=== PATIENT | male | born 1935 | race Caucasian/White ===

== ENCOUNTER → 2018-01-07 | Outpatient (CLI) | payer MEDICARE, OTHER ==
[~2018-01-07] MED LIST: ASCO500 PO; ASPI81CH; BISO5; BISO5 PO; CRUTCH3 USE; DIPH50 PO; DOCU100 PO; Ducodyl5 MG PO; HYDACE5 PO; HYDACE5325 PO; IBUP800 PO; MELA3; METRIBP; NIAC500 PO; NITR.4SL SL; NITR.6SL SL; OMEP20ER PO; OMEP40CA12; PRAV20; PRAV20 PO; PROP60; TEMA30; VENL75ER
== END ==
LOC: LAB EV 11:40 → LAB SHORT 11:40
DX: R30.0 Dysuria (principal)
CPT/HCPCS: 87086

== ENCOUNTER 2019-12-19 08:03 | Emergency (ER) | payer MEDICARE, OTHER ==
[~2019-12-19] VITALS: Ht 170.2 cm; Wt 90.7 kg
[2019-12-19] MEDS ORDERED: Bisoprolol Fumar5 MG PO (09:18)
== END 2019-12-19 11:07 | disposition home or self-care (01) ==
LOC: ER 08:03
DX: I83.891 Varicose veins of right lower extremity with other complications (principal); I10 Essential (primary) hypertension; Z79.82 Long term (current) use of aspirin; Z79.899 Other long term (current) drug therapy
CPT/HCPCS: 99282

== ENCOUNTER 2020-03-29 08:35 | Day surgery (SDC) | payer MEDICARE, OTHER ==
[~2020-03-29 08:35] MED LIST changes: +Bisoprolol Fumar5 MG PO
--- NOTE | 2020-03-29 10:11 | NUR ---
PT AWAKE AND VERBALIZING WELL.
--- NOTE | 2020-03-29 10:54 | NUR ---
PT VERBALIZED UNDERSTANDING OF WRITTEN AND VERBAL D/C INST. IV REMOVED. PT TAKEN OUT OF THE HRT CENTER VIA W/C.
== END 2020-03-29 14:00 | disposition home or self-care (01) ==
LOC: MHTC 08:35
DX: Z48.812 Encounter for surgical aftercare following surgery on the circulatory system (principal); I70.0 Atherosclerosis of aorta; E78.5 Hyperlipidemia, unspecified; I10 Essential (primary) hypertension; Z79.899 Other long term (current) drug therapy; Z95.2 Presence of prosthetic heart valve; Z79.82 Long term (current) use of aspirin
CPT/HCPCS: 93312; 93325; J2704; J7030

== ENCOUNTER 2023-04-22 13:48 | Emergency (ER) | payer MEDICARE, OTHER ==
[~2023-04-22] VITALS: Ht 170.2 cm; Wt 72.6 kg
[~2023-04-22 13:48] MED LIST changes: +TRAM50 PO
[2023-04-22 14:13] VITALS: BP 143/86
[2023-04-22 14:40] LABS: BASOPHILS ABSOLUTE AUTO 0.02 K/mm3 (0.00-0.23); BASOPHILS PERCENT AUTO 0 % (0-2); EOSINOPHILS ABSOLUTE AUTO 0.04 K/mm3 (0.00-0.68); EOSINOPHILS PERCENT AUTO 1 % (0-6); Hematocrit 36.4 % (37.0-53.0); IMMATURE GRAN ABSOLUTE AUTO 0.04 K/mm3 (0.00-0.10); IMMATURE GRAN PERCENT AUTO 1 % (0-1); LYMPHOCYTES ABSOLUTE AUTO 0.36 K/mm3 (0.84-5.20); LYMPHOCYTES PERCENT AUTO 4 % (21-46); MONOCYTES ABSOLUTE AUTO 0.69 K/mm3 (0.16-1.47); MONOCYTES PERCENT AUTO 8 % (4-13); Mean Corpuscular HGB 30.4 pg (26.0-34.0); Mean Corpuscular Volume 92 fL (80-100); Mean Platelet Volume 10.8 fL (9.1-12.4); NEUTROPHILS ABSOLUTE AUTO 7.12 K/mm3 (1.96-9.15); NEUTROPHILS PERCENT AUTO 86 % (41-73); Platelet Count 192 K/mm3 (150-400); RDW Coefficient Variation 14.1 % (11.7-14.2); RDW Standard Deviation 47.8 fL (35.1-46.3); Red Blood Cell Count 3.95 M/mm3 (4.30-5.90); White Blood Cell Count 8.27 K/mm3 (4.00-11.30)
[2023-04-22 15:06] LABS: Influenza A, PCR NEGATIVE (NEGATIVE); Influenza B, PCR NEGATIVE (NEGATIVE); Resp Syncytial Virus, PCR NEGATIVE (NEGATIVE); SARS-Cov-2 (COVID-19) PCR, MMC NEGATIVE (NEGATIVE)
[2023-04-22 15:11] LABS: Albumin, Blood 3.3 g/dL (3.4-5.0); Albumin/Globulin Ratio 1.1 (0.8-1.8); Bilirubin, Total 0.3 mg/dL (0.1-1.0); Calcium, Blood 8.9 mg/dL (8.5-10.1); Creatinine, Blood 0.67 mg/dL (0.60-1.20); Globulin, Blood 3.1 g/dL (2.2-4.0); Potassium, Blood 3.9 mmol/L (3.5-5.5); Total Protein, Blood 6.4 g/dL (6.4-8.2)
[2023-04-22] MEDS ORDERED: LOW DOSE ASPIRI81 MG PO (15:23)
== END 2023-04-22 16:05 | disposition home or self-care (01) ==
LOC: ER 13:48
PROVIDERS: Student in an Organized Health Care Education/Training Program
DX: J02.9 Acute pharyngitis, unspecified (principal); I10 Essential (primary) hypertension; Z20.822 Contact with and (suspected) exposure to COVID-19; Z79.82 Long term (current) use of aspirin
CPT/HCPCS: 0241U; 80053; 85025; 87081; 87430; 99283; A9270

== ENCOUNTER → 2023-10-01 | Outpatient (CLI) | payer MEDICARE, OTHER ==
[~2023-10-01] MED LIST changes: +LOW DOSE ASPIRI81 MG PO
[2023-10-01 18:24] LABS: BASOPHILS ABSOLUTE AUTO 0.04 K/mm3 (0.00-0.23); BASOPHILS PERCENT AUTO 1 % (0-2); EOSINOPHILS ABSOLUTE AUTO 0.09 K/mm3 (0.00-0.68); EOSINOPHILS PERCENT AUTO 2 % (0-6); Hematocrit 35.3 % (37.0-53.0); Hemoglobin 11.5 g/dL (13.5-17.5); IMMATURE GRAN ABSOLUTE AUTO 0.01 K/mm3 (0.00-0.10); IMMATURE GRAN PERCENT AUTO 0 % (0-1); LYMPHOCYTES ABSOLUTE AUTO 0.62 K/mm3 (0.84-5.20); LYMPHOCYTES PERCENT AUTO 13 % (21-46); MONOCYTES ABSOLUTE AUTO 0.37 K/mm3 (0.16-1.47); MONOCYTES PERCENT AUTO 8 % (4-13); Mean Corpuscular HGB 30.2 pg (26.0-34.0); Mean Corpuscular HGB Conc 32.6 g/dL (31.5-36.5); Mean Corpuscular Volume 93 fL (80-100); Mean Platelet Volume 11.4 fL (9.1-12.4); NEUTROPHILS ABSOLUTE AUTO 3.48 K/mm3 (1.96-9.15); NEUTROPHILS PERCENT AUTO 76 % (41-73); Platelet Count 200 K/mm3 (150-400); RDW Coefficient Variation 15.3 % (11.7-14.2); RDW Standard Deviation 52.1 fL (35.1-46.3); Red Blood Cell Count 3.81 M/mm3 (4.30-5.90); White Blood Cell Count 4.61 K/mm3 (4.00-11.30)
[2023-10-01 20:07] LABS: Albumin, Blood 3.6 g/dL (3.4-5.0); Albumin/Globulin Ratio 1.2 (0.8-1.8); Bilirubin, Total 0.3 mg/dL (0.1-1.0); Calcium, Blood 9.2 mg/dL (8.5-10.1); Creatinine, Blood 0.58 mg/dL (0.60-1.20); Globulin, Blood 2.9 g/dL (2.2-4.0); Potassium, Blood 3.9 mmol/L (3.5-5.5); Thyroid Stimulating Hormone 1.02 uIU/mL (0.360-4.800); Total Protein, Blood 6.5 g/dL (6.4-8.2)
== END | disposition home or self-care (01) ==
LOC: LAB SHORT 17:16
PROVIDERS: Family Medicine
DX: I10 Essential (primary) hypertension (principal)
CPT/HCPCS: 80053; 83880; 84443; 85025

== ENCOUNTER 2024-01-31 12:24 | Emergency (ER) | payer MEDICARE, OTHER ==
[~2024-01-31] VITALS: Ht 170.2 cm; Wt 74.8 kg
[2024-01-31 13:21] LABS: BASOPHILS ABSOLUTE AUTO 0.04 K/mm3 (0.00-0.23); BASOPHILS PERCENT AUTO 1 % (0-2); EOSINOPHILS ABSOLUTE AUTO 0.09 K/mm3 (0.00-0.68); EOSINOPHILS PERCENT AUTO 1 % (0-6); Hemoglobin 12.1 g/dL (13.5-17.5); IMMATURE GRAN ABSOLUTE AUTO 0.02 K/mm3 (0.00-0.10); IMMATURE GRAN PERCENT AUTO 0 % (0-1); LYMPHOCYTES ABSOLUTE AUTO 0.66 K/mm3 (0.84-5.20); LYMPHOCYTES PERCENT AUTO 9 % (21-46); MONOCYTES ABSOLUTE AUTO 0.48 K/mm3 (0.16-1.47); MONOCYTES PERCENT AUTO 7 % (4-13); Mean Corpuscular HGB 31.2 pg (26.0-34.0); Mean Corpuscular HGB Conc 32.7 g/dL (31.5-36.5); Mean Corpuscular Volume 95 fL (80-100); Mean Platelet Volume 11.5 fL (9.1-12.4); NEUTROPHILS ABSOLUTE AUTO 5.93 K/mm3 (1.96-9.15); NEUTROPHILS PERCENT AUTO 82 % (41-73); Platelet Count 197 K/mm3 (150-400); RDW Coefficient Variation 14.7 % (11.7-14.2); RDW Standard Deviation 51.3 fL (35.1-46.3); Red Blood Cell Count 3.88 M/mm3 (4.30-5.90); White Blood Cell Count 7.22 K/mm3 (4.00-11.30)
[2024-01-31 13:34] LABS: Albumin, Blood 3.8 g/dL (3.4-5.0); Albumin/Globulin Ratio 1.4 (0.8-1.8); Bilirubin, Total 0.4 mg/dL (0.1-1.0); Bun/Creatinine Ratio 27.4 (12.0-20.0); Calcium, Blood 8.6 mg/dL (8.5-10.1); Creatinine, Blood 0.55 mg/dL (0.60-1.20); Globulin, Blood 2.8 g/dL (2.2-4.0); Potassium, Blood 3.9 mmol/L (3.5-5.5); Total Protein, Blood 6.6 g/dL (6.4-8.2)
[2024-01-31] MEDS ORDERED: NS 1,000 ML IV SCH (13:35)
[2024-01-31 13:36] LABS: Source, Urine Clean Catch
[2024-01-31 13:40] LABS: Appearance, Urine Clear (Clear); Bilirubin, Urine Neg (Neg); Blood, Urine Neg (Neg); Glucose Qualitative, Urine Neg (Neg); Ketones, Urine Neg (Neg); Leukocyte Esterase, Urine Neg (Neg); Nitrite, Urine Neg (Neg); Protein, Urine Neg (Neg); Specific Gravity, Urine 1.005 (1.003-1.022); Urobilinogen, Urine NORM (Normal)
[2024-01-31 13:41] LABS: Color, Urine Pale Yellow (P-Yellow)
[2024-01-31 15:32] VITALS: BP 138/85
== END 2024-01-31 15:33 | disposition home or self-care (01) ==
LOC: ER 12:24
PROVIDERS: Emergency Medicine
DX: R41.0 Disorientation, unspecified (principal); I10 Essential (primary) hypertension; Z79.82 Long term (current) use of aspirin; Z79.899 Other long term (current) drug therapy
CPT/HCPCS: 70450; 80053; 81003; 85025; 93005; 93010; 96360; 99285-25; J7030

== ENCOUNTER 2024-06-14 13:08 | Inpatient (IN) | payer MEDICARE, OTHER ==
[~2024-06-14] VITALS: Ht 170.2 cm; Wt 77.3 kg
[2024-06-14 13:48] LABS: BASOPHILS ABSOLUTE AUTO 0.03 K/mm3 (0.00-0.23); BASOPHILS PERCENT AUTO 1 % (0-2); EOSINOPHILS ABSOLUTE AUTO 0.01 K/mm3 (0.00-0.68); EOSINOPHILS PERCENT AUTO 0 % (0-6); Hematocrit 36.3 % (37.0-53.0); IMMATURE GRAN ABSOLUTE AUTO 0.04 K/mm3 (0.00-0.10); IMMATURE GRAN PERCENT AUTO 1 % (0-1); LYMPHOCYTES PERCENT AUTO 4 % (21-46); MONOCYTES ABSOLUTE AUTO 0.27 K/mm3 (0.16-1.47); MONOCYTES PERCENT AUTO 5 % (4-13); Mean Corpuscular HGB 30.9 pg (26.0-34.0); Mean Corpuscular HGB Conc 33.1 g/dL (31.5-36.5); Mean Corpuscular Volume 94 fL (80-100); Mean Platelet Volume 11.5 fL (9.1-12.4); NEUTROPHILS ABSOLUTE AUTO 4.77 K/mm3 (1.96-9.15); NEUTROPHILS PERCENT AUTO 90 % (41-73); Platelet Count 151 K/mm3 (150-400); RDW Coefficient Variation 14.9 % (11.7-14.2); RDW Standard Deviation 50.7 fL (35.1-46.3); Red Blood Cell Count 3.88 M/mm3 (4.30-5.90); White Blood Cell Count 5.32 K/mm3 (4.00-11.30)
[2024-06-14 14:17] LABS: Albumin, Blood 3.4 g/dL (3.4-5.0); Albumin/Globulin Ratio 1.2 (0.8-1.8); Bilirubin, Total 0.5 mg/dL (0.1-1.0); Bun/Creatinine Ratio 25.5 (12.0-20.0); Calcium, Blood 8.6 mg/dL (8.5-10.1); Creatinine, Blood 0.63 mg/dL (0.60-1.20); Globulin, Blood 2.9 g/dL (2.2-4.0); Potassium, Blood 3.8 mmol/L (3.5-5.5); Total Protein, Blood 6.3 g/dL (6.4-8.2)
[2024-06-14 15:01] LABS: C-REACTIVE PROTEIN, EXT RANGE 5.74 mg/dL (0.000-0.300); Magnesium, Blood 2.1 mg/dL (1.6-2.4); Thyroid Stimulating Hormone 0.431 uIU/mL (0.360-4.800)
[2024-06-14] MEDS ORDERED: NS 1,000 ML IV SCH ×2 (15:50→17:00)
[2024-06-14] MEDS ORDERED: Acetaminophen 325 MG TABLET PO PRN (16:45)
[2024-06-14] MEDS ORDERED: FLU VACC TS2024-25(6MOS UP)/PF 45 MCG/0.5 ML SYRINGE IM PRN (16:45)
[2024-06-14] MEDS ORDERED: TraMADol HCl 50 MG Tab PO PRN (16:45)
[2024-06-14 20:04] VITALS: BP 130/66
[2024-06-15 04:04] VITALS: BP 121/77
[2024-06-15 06:07] LABS: Hematocrit 30.9 % (37.0-53.0); Hemoglobin 10.2 g/dL (13.5-17.5); Mean Corpuscular HGB 30.5 pg (26.0-34.0); Mean Corpuscular Volume 93 fL (80-100); Platelet Count 123 K/mm3 (150-400); RDW Coefficient Variation 15.1 % (11.7-14.2); RDW Standard Deviation 51.1 fL (35.1-46.3); Red Blood Cell Count 3.34 M/mm3 (4.30-5.90); White Blood Cell Count 4.21 K/mm3 (4.00-11.30)
[2024-06-15 06:27] LABS: Albumin, Blood 2.9 g/dL (3.4-5.0); Albumin/Globulin Ratio 1.2 (0.8-1.8); Bilirubin, Total 0.3 mg/dL (0.1-1.0); Bun/Creatinine Ratio 26.6 (12.0-20.0); Calcium, Blood 8.3 mg/dL (8.5-10.1); Creatinine, Blood 0.64 mg/dL (0.60-1.20); Globulin, Blood 2.4 g/dL (2.2-4.0); Potassium, Blood 3.4 mmol/L (3.5-5.5); Total Protein, Blood 5.3 g/dL (6.4-8.2)
--- NOTE | 2024-06-15 06:29 | NUR ---
SHIFT SUMMARY PT ARRIVED ON FLOOR APPROX 1999 FROM ER. ADMITTED FOR RHABDOMYOLYSIS. HE WAS FOUND DOWN IN HIS HOME WHERE HE LIVES ALONE. HE HAS GIVEN VERBAL CONSENT FOR MARJAN TORRES (FRIEND AND CAREGIVER) TO BE MADE AWARE OF ANY INFORMATION REGARDING HIS HEALTHCARE DURING THIS ADMISSION. HER PHONE NUMBER IS IN THE FRONT SLEEVE OF HIS PATIENT CHART. HE HAS A PLEASANT ATTITUDE REGARDING HIS CURRENT ADMISSION, AND HAS BEEN COOPERATIVE WITH CARE PROVIDED TO HIM. HE DOES HAVE TROUBLE REMEMBERING, AND IS UNABLE TO COMPLETE HIS MED REC FOR HIS ADMISSION. MARJAN WOULD LIKE TO BE PRESENT WHEN DOCTOR ROUNDS TO HELP HIM UNDERSTAND AND RETAIN INFORMATION GIVEN TO HIM. HE IS SLEEPING SOUNDLY, AND HIS CALL LIGHT IS WITHIN REACH. PT WOKE TO USE URINAL. FINISHED ADMIT ASSESSMENT DURING THIS TIME. PT PLEASANT AND COOPERATIVE. PT ABLE TO USE URINAL. VOIDED 300ML DARK OMERO URINE.
[2024-06-15 06:30] LABS: BAND PERCENT MAN 17 % (0-8); BASOPHILS PERCENT MAN 0 % (0-2); EOSINOPHILS PERCENT MAN 0 % (0-6); LYMPHOCYTES ABSOLUTE MAN 0.25 K/mm3 (0.84-5.20); LYMPHOCYTES PERCENT MAN 6 % (21-46); MONOCYTES ABSOLUTE MAN 0.16 K/mm3 (0.16-1.47); MONOCYTES PERCENT MAN 4 % (4-13); NEUTROPHILS ABSOLUTE MAN 3.78 K/mm3 (1.96-9.15); SEG NEUTROPHILS PERCENT MAN 73 % (41-73); TOTAL CELLS COUNTED 100
[2024-06-15] MEDS ORDERED: Potassium Chloride 20 MEQ/15 ML UDC PO ONE (08:00)
[2024-06-15 08:02] VITALS: BP 122/78
[2024-06-15] MEDS ORDERED: Enoxaparin 40 MG/0.4 ML SYR SC SCH (09:00)
[2024-06-15 12:32] LABS: Bun/Creatinine Ratio 21.5 (12.0-20.0); Calcium, Blood 7.9 mg/dL (8.5-10.1); Creatinine, Blood 0.61 mg/dL (0.60-1.20); Potassium, Blood 3.7 mmol/L (3.5-5.5)
[2024-06-15] MEDS ORDERED: PredniSONE 5 MG Tab PO SCH (13:00)
[2024-06-15 15:21] LABS: Adenovirus Not Detected (NOT DETECT); Bordetella pertussis Not Detected (NOT DETECT); Chlamydophila pneumoniae Not Detected (NOT DETECT); Coronavirus 229E Not Detected (NOT DETECT); Coronavirus HKU1 Not Detected (NOT DETECT); Coronavirus NL63 Not Detected (NOT DETECT); Coronavirus OC43 Not Detected (NOT DETECT); Human Metapneumovirus Not Detected (NOT DETECT); Human Rhinovirus/Enterovirus Not Detected (NOT DETECT); Influenza A/2009-H1 Not Detected (NOT DETECT); Influenza A/H1 Not Detected (NOT DETECT); Influenza A/H3 Not Detected (NOT DETECT); Influenza B Not Detected (NOT DETECT); Mycoplasma pneumoniae Not Detected (NOT DETECT); Parainfluenza Virus 1 Not Detected (NOT DETECT); Parainfluenza Virus 2 Not Detected (NOT DETECT); Parainfluenza Virus 3 Not Detected (NOT DETECT); Parainfluenza Virus 4 Not Detected (NOT DETECT); Respiratory Syncytial Virus Not Detected (NOT DETECT); SARS-Cov-2 (COVID-19), BioFire Not Detected (NOT DETECT)
[2024-06-15] MEDS ORDERED: Lactated Ringer's 1,000 ML IV SCH (15:25)
--- NOTE | 2024-06-15 15:43 | NUR ---
SHIFT SUMMARY- PT HAS HAD NO ACUTE CHANGE T/O THE SHIFT, HIS LUNG SOUNDS ARE WHEEZY T/O. HE IS CURRENTLY IN BED, CALL LIGHT IN REACH NO S&S OF DISTRESS NOTED. MULTIPLE LABS COMPLETED TODAY, CALLED DR SANTIAGO AND ASKED THAT HE CALL MARJAN TO UPDATE HER ABOUT THE PT TESTS AND THE PLAN FOR HIS TREATMENT GOING FORWARD. DR SANTIAGO WILL CALL HER.
[2024-06-15 17:39] VITALS: BP 122/79
--- NOTE | 2024-06-15 18:36 | NUR ---
SHIFT SUMMARY ADDENEDUM- PT NEEDED IVF STARTED IV WAS LEAKING AND NOT PATENT, NOTED PT RESP WERE ELEVATED AND BREATH SOUNDS REMAIN WHEEZY. WHILE STARTING A NEW IV NOTED THE PT FEELS HOT TO THE TOUCH. [employer] P[employer] CAME IN TO PERFORM VITALS, TEMPORAL TEMP WAS 98.4 ORAL THERMOMETER WAS USED. TEMP 100.6. PLACED ICE PACK ON THE BACK OF THE PT NECK, PLACED NEW IV AND STARTED THE LR AT 200ML/HR, PLACED PT ON TELE, AND ADMINISTERED TYLENOL PRN FOR FEVER AND BODY ACHES. CALLED DR SANTIAGO THE PT RESP RATE WAS 32, SATS WERE 94% ON ROOM AIR. NEW ORDER FOR BD PROTOCOL. CALLED NIGHT JAYLENE BARCLAY HE IS AWARE AND WILL COME SEE THE PT WHEN HE GETS TO MED FLOOR. AT THIS TIME THE PT APPEARS TO BE IN NO DISTRESS, HE STATES HE FEELS SO MUCH WEAKER THIS EVENING, METAL LOADER SEEM MORE WEAK. PT STATES HE FEELS BETTER NOW THAN HE DID PRIOR TO THE ICE AND TYLENOL.
[2024-06-15 19:22] VITALS: BP 105/62
[2024-06-15] MEDS ORDERED: CefTRIAXone Sodium 1,000 MG in NS 100 ML IV SCH (21:00)
[2024-06-15] MEDS ORDERED: NS 250 ML IV PRN (21:15)
[2024-06-15 21:44] LABS: Source, Urine Clean Catch
[2024-06-15 21:48] LABS: Bilirubin, Urine Neg (Neg); Blood, Urine 2+ (Neg); Glucose Qualitative, Urine Neg (Neg); Ketones, Urine Neg (Neg); Leukocyte Esterase, Urine Neg (Neg); Nitrite, Urine Neg (Neg); Protein, Urine Neg (Neg); Urobilinogen, Urine NORM (Normal)
[2024-06-15 21:51] LABS: Appearance, Urine Clear (Clear); Color, Urine Yellow (P-Yellow)
[2024-06-15 21:54] LABS: Bacteria Not Seen /hpf; Red Blood Cells, Urine 0-2 /hpf (0-2); Squamous Epithelial Cells Not Seen /hpf (Few); White Blood Cells, Urine Not Seen /hpf (0-5)
[2024-06-16 02:10] VITALS: BP 132/73
[2024-06-16 05:49] LABS: Hematocrit 29.7 % (37.0-53.0); Hemoglobin 9.8 g/dL (13.5-17.5); Mean Corpuscular HGB 30.9 pg (26.0-34.0); Mean Corpuscular Volume 94 fL (80-100); Mean Platelet Volume 11.9 fL (9.1-12.4); NRBC ABSOLUTE 0.02 K/mm3 (0.00-0.02); NRBC Auto 0.6 /100 WBC (0.0-0.2); Platelet Count 105 K/mm3 (150-400); RDW Coefficient Variation 14.9 % (11.7-14.2); RDW Standard Deviation 51.6 fL (35.1-46.3); Red Blood Cell Count 3.17 M/mm3 (4.30-5.90); White Blood Cell Count 3.57 K/mm3 (4.00-11.30)
--- NOTE | 2024-06-16 06:26 | NUR ---
SHIFT SUMMARY ART IS A&OX4, FORGETFUL AT TIMES. VSS ON RA. 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 DENIES PAIN. TOLERATING A CLEAR LIQUID DIET. PT IS USING URINAL INDEPENDENTLY IN BED. VOIDING LARGE AMOUNTS OF VERY LIGHT, CLEAR URINE IN URINAL. HAS BEEN INCONTINENT, PULL-UP IN PLACE AND CHANGED NEEDED. NO BM THIS SHIFT. PT HAS ABRASIONS TO BUE. BED IN LOWEST POSITION, CALL LIGHT WITHIN REACH. BED ALARM SET FOR PT'S SAFETY. REMINDED PT ON USING HIS CALL LIGHT.
[2024-06-16 06:28] LABS: BAND PERCENT MAN 27 % (0-8); BASOPHILS PERCENT MAN 0 % (0-2); EOSINOPHILS PERCENT MAN 0 % (0-6); LYMPHOCYTES ABSOLUTE MAN 0.35 K/mm3 (0.84-5.20); LYMPHOCYTES PERCENT MAN 10 % (21-46); MONOCYTES ABSOLUTE MAN 0.42 K/mm3 (0.16-1.47); MONOCYTES PERCENT MAN 12 % (4-13); NEUTROPHILS ABSOLUTE MAN 2.78 K/mm3 (1.96-9.15); SEG NEUTROPHILS PERCENT MAN 51 % (41-73); TOTAL CELLS COUNTED 100
[2024-06-16 06:30] LABS: Albumin, Blood 2.6 g/dL (3.4-5.0); Bilirubin, Total 0.3 mg/dL (0.1-1.0); Creatinine, Blood 0.54 mg/dL (0.60-1.20); Globulin, Blood 2.6 g/dL (2.2-4.0); Potassium, Blood 3.8 mmol/L (3.5-5.5); Total Protein, Blood 5.2 g/dL (6.4-8.2)
[2024-06-16 07:07] VITALS: BP 108/75
[2024-06-16 14:52] VITALS: BP 118/73
--- NOTE | 2024-06-16 17:49 | NUR ---
SHIFT SUMMARY PT CONT LEVEL OF CARE WITH NO ACUTE CHANGES NOTED. PT IS A&OX4 AND ASSIST X1 WITH FWW. PT NOTED TO BE CONT OF BOWEL AND BLADDER. PT DIET ADVANCED TO HEART HEALTHY THIS SHIFT AND PT TOLERATED WELL. PLAN IS TO POSSIBLE DC TO SNF FOR 1-2 WEEKS IN THE NEXT COUPLE OF DAYS.
[2024-06-16 19:15] VITALS: BP 125/70
[2024-06-17 02:06] VITALS: BP 124/80
--- NOTE | 2024-06-17 06:28 | NUR ---
SHIFT SUMMARY ART IS A&OX4, FORGETFUL AT TIMES. VSS ON RA. PER TELEMETRY PT IS SR @ 66. DENIES PAIN. PT HAVING INSOMNIA. TOLERATING A HEART HEALTHY DIET. TAKES PILLS WHOLE WITH FLUIDS. PT IS USING URINAL INDEPENDENTLY IN BED. VOIDING LARGE AMOUNTS OF STRAW COLORED, URINE IN URINAL. NO BM THIS SHIFT. PT HAS ABRASIONS TO BUE. BED IN LOWEST POSITION, CALL LIGHT WITHIN REACH. BED ALARM SET FOR PT'S SAFETY. REMINDED PT ON USING HIS CALL LIGHT.
[2024-06-17 07:23] VITALS: BP 141/76
[2024-06-17 07:53] LABS: BASOPHILS ABSOLUTE AUTO 0.02 K/mm3 (0.00-0.23); BASOPHILS PERCENT AUTO 1 % (0-2); EOSINOPHILS ABSOLUTE AUTO 0.06 K/mm3 (0.00-0.68); EOSINOPHILS PERCENT AUTO 2 % (0-6); Hematocrit 31.7 % (37.0-53.0); Hemoglobin 10.4 g/dL (13.5-17.5); IMMATURE GRAN ABSOLUTE AUTO 0.01 K/mm3 (0.00-0.10); IMMATURE GRAN PERCENT AUTO 0 % (0-1); LYMPHOCYTES ABSOLUTE AUTO 0.41 K/mm3 (0.84-5.20); LYMPHOCYTES PERCENT AUTO 14 % (21-46); MONOCYTES ABSOLUTE AUTO 0.38 K/mm3 (0.16-1.47); MONOCYTES PERCENT AUTO 13 % (4-13); Mean Corpuscular HGB 30.8 pg (26.0-34.0); Mean Corpuscular HGB Conc 32.8 g/dL (31.5-36.5); Mean Corpuscular Volume 94 fL (80-100); Mean Platelet Volume 11.3 fL (9.1-12.4); NEUTROPHILS ABSOLUTE AUTO 2.06 K/mm3 (1.96-9.15); NEUTROPHILS PERCENT AUTO 70 % (41-73); Platelet Count 125 K/mm3 (150-400); RDW Coefficient Variation 14.7 % (11.7-14.2); RDW Standard Deviation 50.4 fL (35.1-46.3); Red Blood Cell Count 3.38 M/mm3 (4.30-5.90); White Blood Cell Count 2.94 K/mm3 (4.00-11.30)
[2024-06-17 08:14] LABS: Albumin, Blood 2.8 g/dL (3.4-5.0); Bilirubin, Total 0.4 mg/dL (0.1-1.0); Bun/Creatinine Ratio 15.6 (12.0-20.0); Calcium, Blood 8.2 mg/dL (8.5-10.1); Creatinine, Blood 0.51 mg/dL (0.60-1.20); Globulin, Blood 2.8 g/dL (2.2-4.0); Potassium, Blood 3.2 mmol/L (3.5-5.5); Total Protein, Blood 5.6 g/dL (6.4-8.2)
[2024-06-17] MEDS ORDERED: Potassium Chloride 10 Meq Tablet SA PO ONE (10:15)
[2024-06-17] MEDS ORDERED: Melatonin 5 MG Tablet PO PRN (10:15)
[2024-06-17 15:27] VITALS: BP 112/76
[2024-06-17 18:37] LABS: JO-1 HISTIDYL-TRNA SYNTHET,IGG 1 AU/mL (0-40)
--- NOTE | 2024-06-17 18:39 | NUR ---
SHIFT SUMMARY PT A&0X3. PT COULDN'T RECAL REASON FOR ADMISSION. PT ADMITTED DUE TO RHABDOMYOLSIS. PT DENIED PAIN DURING SHIFT. PT WAS RESISTIVE TO USING WALKER, EVEN AFTER EDUCATION. PT WORKED WITH PHYSICAL THERAPY TODAY. PT WANTED TO LEAVE AMA, DR. CAMEJO AND CAREGIVER CAME AND TALKED HIM INTO STAYING. PT IS EATING AND DRINKING WELL. VSS. TELE D/C. PLAN TO D/C TO [facility] TOMORROW. PT MAKES NEEDS KNOWN. PT SHOWS SIGNS OF BEING IMPULSIVE BY GETTING OUT OF CHAIR WITHOUT CALLING. PT WAS SITTING IN CHAIR MOST OF SHIFT. PT NOW LAYING IN BED WATCHING TV WITH BED ALARM ON.
[2024-06-17 19:32] VITALS: BP 107/73
[2024-06-18] MEDS ORDERED: PRAVASTATIN SOD10 MG PO (00:13)
[2024-06-18] MEDS ORDERED: TAMSULOSIN HCL0.4 M1 PO (00:13)
[2024-06-18] MEDS ORDERED: MIRTAZAPINE PO (00:14)
[2024-06-18] MEDS ORDERED: LORazepam 0.5 MG Tab PO ONE (02:05)
[2024-06-18 02:27] VITALS: BP 125/75
--- NOTE | 2024-06-18 05:14 | NUR ---
SHIFT SUMMARY ART IS A&O TO SELF, VERY CONFUSED THIS SHIFT. PT PULLED HIS IV, NEW PIV TO LEFT FOREARM PLACED, VSS ON RA. DENIES PAIN. PT AWAKE MUCH OF THE NIGHT. TOLERATING A HEART HEALTHY DIET. TAKES PILLS WHOLE WITH FLUIDS. PT IS USING URINAL INDEPENDENTLY IN BED. VOIDING LARGE AMOUNTS OF LIGHT YELLOW, URINE IN URINAL. NO BM THIS SHIFT. PT HAS ABRASIONS TO BUE. BED IN LOWEST POSITION, CALL LIGHT WITHIN REACH. BED ALARM SET FOR PT'S SAFETY. REMINDED PT ON USING HIS CALL LIGHT.
[2024-06-18 06:17] LABS: BASOPHILS ABSOLUTE AUTO 0.02 K/mm3 (0.00-0.23); BASOPHILS PERCENT AUTO 1 % (0-2); EOSINOPHILS ABSOLUTE AUTO 0.07 K/mm3 (0.00-0.68); EOSINOPHILS PERCENT AUTO 3 % (0-6); Hematocrit 29.9 % (37.0-53.0); Hemoglobin 9.8 g/dL (13.5-17.5); IMMATURE GRAN ABSOLUTE AUTO 0.01 K/mm3 (0.00-0.10); IMMATURE GRAN PERCENT AUTO 0 % (0-1); LYMPHOCYTES ABSOLUTE AUTO 0.37 K/mm3 (0.84-5.20); LYMPHOCYTES PERCENT AUTO 16 % (21-46); MONOCYTES ABSOLUTE AUTO 0.39 K/mm3 (0.16-1.47); MONOCYTES PERCENT AUTO 17 % (4-13); Mean Corpuscular HGB 30.4 pg (26.0-34.0); Mean Corpuscular HGB Conc 32.8 g/dL (31.5-36.5); Mean Corpuscular Volume 93 fL (80-100); Mean Platelet Volume 11.7 fL (9.1-12.4); NEUTROPHILS ABSOLUTE AUTO 1.44 K/mm3 (1.96-9.15); NEUTROPHILS PERCENT AUTO 63 % (41-73); Platelet Count 121 K/mm3 (150-400); RDW Coefficient Variation 14.7 % (11.7-14.2); RDW Standard Deviation 50.1 fL (35.1-46.3); Red Blood Cell Count 3.22 M/mm3 (4.30-5.90)
[2024-06-18 06:42] LABS: Albumin, Blood 2.8 g/dL (3.4-5.0); Albumin/Globulin Ratio 1.1 (0.8-1.8); Bilirubin, Total 0.3 mg/dL (0.1-1.0); Bun/Creatinine Ratio 17.8 (12.0-20.0); Calcium, Blood 8.4 mg/dL (8.5-10.1); Creatinine, Blood 0.45 mg/dL (0.60-1.20); Globulin, Blood 2.6 g/dL (2.2-4.0); Potassium, Blood 3.6 mmol/L (3.5-5.5); Total Protein, Blood 5.4 g/dL (6.4-8.2)
[2024-06-18 07:49] VITALS: BP 117/77
--- NOTE | 2024-06-18 13:24 | NUR ---
DISCHARGE NOTE: MEDICAL TRANSPORT ARRIVED VIA WHEELCHAIR TO TAKE THE PATIENT TO THE MEDICAL CENTER. PAPERWORK GIVEN TO MEDICAL TRANSPORTER. ASSISTED THE PATIENT WITH GETTING DRESSED, COLLECTED HIS BELONGINGS, AND REMOVED IV. CALLED KETURAH CRESPO AND GAVE REPORT TO SUJATHA. NO SIGNS OR SYMPTOMS OF DISTRESS WITH PATIENT DURING DISCHARGE.
[2024-06-18 19:50] LABS: HBV CORE ANTIBODIES,TOTAL Negative (Negative)
== END 2024-06-18 13:15 | DRG 558 ==
LOC: ER 13:08 → ERHOLD 13:09 → MEDS 19:56
PROVIDERS: Emergency Medicine; Family Medicine; Internal Medicine; ADMIT Hospitalist
DX: M62.82 Rhabdomyolysis (principal); R65.10 Systemic inflammatory response syndrome (SIRS) of non-infectious origin without acute organ dysfunction; I48.91 Unspecified atrial fibrillation; F01.50 Vascular dementia, unspecified severity, without behavioral disturbance, psychotic disturbance, mood disturbance, and anxiety; I10 Essential (primary) hypertension; E78.5 Hyperlipidemia, unspecified; Z66 Do not resuscitate; Z79.82 Long term (current) use of aspirin; Z79.899 Other long term (current) drug therapy; G30.9 Alzheimer's disease, unspecified; F02.80 Dementia in other diseases classified elsewhere, unspecified severity, without behavioral disturbance, psychotic disturbance, mood disturbance, and anxiety; E87.6 Hypokalemia; G47.00 Insomnia, unspecified
CPT/HCPCS: 0202U; 36415; 70450; 71045; 80048; 80053; 81001; 82550; 82607; 82746; 83735; 84145; 84443; 84484; 85025; 85651; 86140; 86235; 86704; 93005; 93010; 94762; 96360; 96361; 96372; 97110; 97116; 97161; 97530; 99285-25; A9270; G0378; J0696; J1650; J7030; J7050; J7120; J7512

== ENCOUNTER 2024-07-21 11:54 | Inpatient (IN) | payer MEDICARE, OTHER ==
[~2024-07-21] VITALS: Ht 170.2 cm; Wt 77.1 kg
[~2024-07-21 11:54] MED LIST changes: +MIRTAZAPINE PO; +PRAVASTATIN SOD10 MG PO; +TAMSULOSIN HCL0.4 M1 PO
[2024-07-21 14:17] LABS: BASOPHILS ABSOLUTE AUTO 0.03 K/mm3 (0.00-0.23); BASOPHILS PERCENT AUTO 0 % (0-2); EOSINOPHILS ABSOLUTE AUTO 0.08 K/mm3 (0.00-0.68); EOSINOPHILS PERCENT AUTO 1 % (0-6); Hematocrit 30.5 % (37.0-53.0); Hemoglobin 9.9 g/dL (13.5-17.5); IMMATURE GRAN ABSOLUTE AUTO 0.11 K/mm3 (0.00-0.10); IMMATURE GRAN PERCENT AUTO 1 % (0-1); LYMPHOCYTES ABSOLUTE AUTO 0.81 K/mm3 (0.84-5.20); LYMPHOCYTES PERCENT AUTO 7 % (21-46); MONOCYTES ABSOLUTE AUTO 0.91 K/mm3 (0.16-1.47); MONOCYTES PERCENT AUTO 8 % (4-13); Mean Corpuscular HGB 30.9 pg (26.0-34.0); Mean Corpuscular HGB Conc 32.5 g/dL (31.5-36.5); Mean Corpuscular Volume 95 fL (80-100); Mean Platelet Volume 11.8 fL (9.1-12.4); NEUTROPHILS ABSOLUTE AUTO 9.65 K/mm3 (1.96-9.15); NEUTROPHILS PERCENT AUTO 83 % (41-73); Platelet Count 164 K/mm3 (150-400); RDW Coefficient Variation 16.3 % (11.7-14.2); RDW Standard Deviation 56.6 fL (35.1-46.3); White Blood Cell Count 11.59 K/mm3 (4.00-11.30)
[2024-07-21 14:20] LABS: Source, Urine Clean Catch
[2024-07-21 14:25] LABS: Appearance, Urine Clear (Clear); Bilirubin, Urine Neg (Neg); Blood, Urine Neg (Neg); Color, Urine Yellow (P-Yellow); Glucose Qualitative, Urine Neg (Neg); Ketones, Urine Neg (Neg); Leukocyte Esterase, Urine Neg (Neg); Nitrite, Urine Neg (Neg); Protein, Urine Neg (Neg); Specific Gravity, Urine 1.025 (1.003-1.022); Urobilinogen, Urine NORM (Normal)
[2024-07-21 14:54] LABS: Bun/Creatinine Ratio 33.4 (12.0-20.0); Calcium, Blood 8.8 mg/dL (8.5-10.1); Creatinine, Blood 0.6 mg/dL (0.60-1.20); Free Thyroxine 0.89 ng/dL (0.70-1.60); Magnesium, Blood 1.9 mg/dL (1.6-2.4); Potassium, Blood 3.8 mmol/L (3.5-5.5); Thyroid Stimulating Hormone 0.453 uIU/mL (0.360-4.800)
[2024-07-21] MEDS ORDERED: Aspir 8181 MG PO (16:14)
[2024-07-21] MEDS ORDERED: Ipratropium/Albuterol SulF 2.5-0.5MG/3 ML Amp INH ONE (16:30)
[2024-07-21 16:45] LABS: Influenza A, PCR NEGATIVE (NEGATIVE); Influenza B, PCR NEGATIVE (NEGATIVE); Resp Syncytial Virus, PCR NEGATIVE (NEGATIVE); SARS-Cov-2 (COVID-19) PCR, MMC NEGATIVE (NEGATIVE)
[2024-07-21] MEDS ORDERED: CefTRIAXone Sodium 1,000 MG in NS 100 ML IV ONE (16:55)
[2024-07-21] MEDS ORDERED: Doxycycline Hyclate 100 MG in Dextrose 5% 250 ML IV ONE (16:55)
[2024-07-21] MEDS ORDERED: Magnesium Hydroxide Conc 10 ML UDC PO PRN (17:40)
[2024-07-21] MEDS ORDERED: Ondansetron HCl 2 MG / ML 2ML Vial IV PRN (17:40)
[2024-07-21] MEDS ORDERED: Ipratropium/Albuterol SulF 2.5-0.5MG/3 ML Amp INH SCH (18:00)
[2024-07-21] MEDS ORDERED: MethylPREDNISolone Sod Succ 125 MG Vial IV SCH (18:00)
[2024-07-21] MEDS ORDERED: FLU VACC TS2024-25(6MOS UP)/PF 45 MCG/0.5 ML SYRINGE IM ONE (20:00)
[2024-07-21 20:35] VITALS: BP 108/57
[2024-07-21] MEDS ORDERED: Lactobacil 2-S.Thermo-Bifido 1 1 Cap PO SCH (21:00)
[2024-07-21] MEDS ORDERED: Mirtazapine 15 MG Tab PO SCH (21:00)
--- NOTE | 2024-07-21 21:45 | NUR ---
PT ARRIVED TO MEDICAL FLOOR RM#[id number] @2019. PT BROUGHT ALL HIS BELONING BAGS WITH HIM FROM THE ED. PT WAS TRANSFERRED FROM [facility] TO HOSPITAL BED WITH A SLIDING SHEET WITH STAFF MEMBERS. CRANE FOLLOWERARIELLA Chowdhury COMPLETED THE ADMISSION ASSESSMENT, SKIN CHECK WITH THIS CIRCUIT MANAGER. PT WAS ORIENTED TO THE MEDICAL FLOOR, HOSPITAL ROOM, AND THE CALL LIGHT. BED AT THE LOWEST POSITION, BED ALARM FOR SAFETY. PT WEARING NON-SLIP SOCKS AND A HOSPITAL GOWN. URINAL BY THE BEDSIDE. PT IS 1-PERSON ASSIST WITH FWW AND A GAITBELT. CALL LIGHT WITHIN REACH. PT IS A&O X4, ABLE TO MAKE HIS NEEDS KNOWN AND COOPERATIVE WITH CARE.
--- NOTE | 2024-07-21 22:57 | NUR ---
NEW T-ORDER RECEIVED FROM THE ON-CALL HOSPITALIST ANA: PEPCID 10MG PO BID, AND PEPCID 10MG PO ONCE/NOW. ENTERED TO [employer], SEE EMAR. NO ADITTIONAL NEW ORDERS AT THIS TIME.
[2024-07-21] MEDS ORDERED: Famotidine 20 MG Tab PO ONE (23:00)
[2024-07-22 01:27] VITALS: BP 105/62
[2024-07-22 05:06] LABS: Hematocrit 32.4 % (37.0-53.0); Hemoglobin 10.5 g/dL (13.5-17.5); Mean Corpuscular HGB 30.9 pg (26.0-34.0); Mean Corpuscular HGB Conc 32.4 g/dL (31.5-36.5); Mean Corpuscular Volume 95 fL (80-100); Mean Platelet Volume 12.3 fL (9.1-12.4); Platelet Count 147 K/mm3 (150-400); RDW Coefficient Variation 16.2 % (11.7-14.2); RDW Standard Deviation 56.4 fL (35.1-46.3); White Blood Cell Count 12.18 K/mm3 (4.00-11.30)
[2024-07-22 05:28] LABS: Calcium, Blood 8.7 mg/dL (8.5-10.1); Creatinine, Blood 0.56 mg/dL (0.60-1.20); Potassium, Blood 3.8 mmol/L (3.5-5.5)
[2024-07-22] MEDS ORDERED: Pantoprazole Sodium 20 MG Tab PO SCH (06:00)
[2024-07-22 07:30] VITALS: BP 131/75
[2024-07-22] MEDS ORDERED: Magnesium Hydroxide Conc 10 ML UDC PO PRN (08:20)
[2024-07-22] MEDS ORDERED: NS 250 ML IV PRN (08:40)
[2024-07-22] MEDS ORDERED: Tamsulosin HCl 0.4 MG Cap PO SCH (09:00)
[2024-07-22] MEDS ORDERED: Famotidine 20 MG Tab PO SCH (09:00)
[2024-07-22] MEDS ORDERED: Docusate Sodium 100 MG Cap PO SCH (09:00)
[2024-07-22] MEDS ORDERED: Heparin Sodium 5000 Units/ML 1ML MDV SC SCH (09:00)
[2024-07-22] MEDS ORDERED: Doxycycline Hyclate 100 MG in Dextrose 5% 250 ML IV SCH (09:00)
[2024-07-22] MEDS ORDERED: CefTRIAXone Sodium 1,000 MG in NS 100 ML IV SCH (09:00)
[2024-07-22] MEDS ORDERED: Aspirin 81 MG TabEC PO SCH (09:00)
[2024-07-22] MEDS ORDERED: Sennosides 8.6 MG Tab PO SCH (09:00)
[2024-07-22 15:40] VITALS: BP 99/63
--- NOTE | 2024-07-22 16:59 | NUR ---
SHIFT SUMMARY PT AO4, COOPERATIVE, ABLE TO MAKE NEEDS KNOWN. PT FAIRLY IMPULSIVE THROUGHTOUT THE DAY BUT UNDERSTANDS DIRECTION. THIS RN WALKED WITH PT IN HALLWAY FOR EXERCISE. PT USING TOILET AND URINAL CORRECTLY. BED/CHAIR ALARM ON. NEW IV ESTABLISHED LEFT FOREARM. TOLERATING MEDICATIONS APPROPRIATLEY. BED IN LOWEST POSITION, CALL LIGHT WITHIN REACH.
[2024-07-22 19:41] VITALS: BP 111/64
[2024-07-23 01:05] VITALS: BP 107/72
[2024-07-23] MEDS ORDERED: OLANZapine 10 MG Vial IM ONE (02:40)
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
[2024-07-23] MEDS ORDERED: QUEtiapine Fumarate 25 MG Tab PO ONE (03:35)
--- NOTE | 2024-07-23 03:37 | NUR ---
@0330 DR. BOND BY THE BEDSIDE. PT SITTING IN A RECLINER WITH CLOTHES AND SHOES ON. PT ABLE TO REMEMBER EARLIER SITUATION AND EXPLAIN TO THE NEW VERBAL ORDER FOR SERAQUEL PO 25MG ONCE RECEIVED FROM DR. BOND AND ENTERED TO [employer]. PT AGREABLE TO HAVE ONE TIME DOSE FOR AGITATION. PT REMEMBERS FEELING AGITATED EARLIER, AND WOULD LIKE TO TRY THE MEDICATION. PER CHARGE NURSE GWNE, WILL GET A SITTER FOR THE PT SOON. THIS SOCIAL WORK SUPERVISOR AND VARGAS FREGOSO ROTATING AND CLOSELY MONITORING THE PT D/T UNSTEADY GAIT AND RISK FOR FALLS. PT SHUFFLING RECEIPTS/PAPERS WHILE SITTING IN THE RECLINER. A&O X2-3. COOPERATIVE WITH CARE @0355.
--- NOTE | 2024-07-23 06:02 | NUR ---
NEW T-ORDER FROM THE ON-CALL HOSPITALIST TO D/C TELEMETRY. ENTERED TO [employer] AND DISCONTINUED ORDERED. TRADING ANALYST NOTIFIED.
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
[2024-07-23 07:19] VITALS: BP 132/76
[2024-07-23] MEDS ORDERED: PredniSONE 20 MG Tab PO SCH (09:00)
[2024-07-23] MEDS ORDERED: DOCU100 PO (12:39)
[2024-07-23] MEDS ORDERED: VISBIOME 112.51 EACH PO (12:39)
[2024-07-23] MEDS ORDERED: AMOCLA875 PO (12:39)
[2024-07-23] MEDS ORDERED: Q-Tussin100 MG/5 M PO (12:42)
[2024-07-23] MEDS ORDERED: GUAI600T33 PO (12:42)
--- NOTE | 2024-07-23 16:51 | NUR ---
DISCHARGE NOTE- PT WAS GIVEN VERBAL AND WRITTEN DISCHARGE INSTRUCTIONS AND ACKNOWLEDGED UNDERSTANDING OF THEM. IV DC'D PRIOR TO DISCHARGE PT ESCORTED OUT VIA WC BY THE FUR COMBER. NO S&S OF DISTRESS NOTED AT THE TIME OF DISCHARGE.
== END 2024-07-23 15:04 | disposition home health service (06) | DRG 871 ==
LOC: ER 11:54 → ERHOLD 18:38 → MEDS 20:15 → ENPENDDIS 07-23 11:49 → MEDS 07-23 15:04
PROVIDERS: Emergency Medicine; ADMIT Internal Medicine
DX: A41.9 Sepsis, unspecified organism (principal); J18.9 Pneumonia, unspecified organism; Z66 Do not resuscitate; J45.909 Unspecified asthma, uncomplicated; I10 Essential (primary) hypertension; I48.91 Unspecified atrial fibrillation; E78.5 Hyperlipidemia, unspecified; G30.9 Alzheimer's disease, unspecified; F02.80 Dementia in other diseases classified elsewhere, unspecified severity, without behavioral disturbance, psychotic disturbance, mood disturbance, and anxiety; F01.50 Vascular dementia, unspecified severity, without behavioral disturbance, psychotic disturbance, mood disturbance, and anxiety; N40.0 Benign prostatic hyperplasia without lower urinary tract symptoms; Z79.82 Long term (current) use of aspirin; Z79.899 Other long term (current) drug therapy
CPT/HCPCS: 0241U; 36415; 71045; 71260; 80048; 81003; 82607; 83605; 83735; 84439; 84443; 84484; 85025; 85027; 85379; 87070; 87077; 87186; 87205; 93005; 93010; 94640; 94664; 94760; 96365-59; 97110; 97116; 97162; 99285-25; A9270; J0696; J1644; J2470; J2919; J7050; J7060; J7512; Q9967

== ENCOUNTER 2024-08-21 13:00 | Day surgery (SDC) | payer MEDICARE, OTHER ==
[~2024-08-21 13:00] MED LIST changes: +AMOCLA875 PO; +Aspir 8181 MG PO; +GUAI600T33 PO; +Q-Tussin100 MG/5 M PO; +VISBIOME 112.51 EACH PO
[2024-08-21] MEDS ORDERED: Sod Ferric Gluc Complx/Sucrose 125 MG in NS 100 ML IV SCH (13:45)
[2024-08-21 15:21] VITALS: BP 160/81
== END 2024-08-21 16:25 | disposition home or self-care (01) ==
LOC: ATC 13:00
DX: D50.9 Iron deficiency anemia, unspecified (principal); F03.90 Unspecified dementia, unspecified severity, without behavioral disturbance, psychotic disturbance, mood disturbance, and anxiety; I50.32 Chronic diastolic (congestive) heart failure; Z79.82 Long term (current) use of aspirin
CPT/HCPCS: 96365; J2916

== ENCOUNTER 2024-08-28 04:52 | Day surgery (SDC) | payer MEDICARE, OTHER ==
[~2024-08-28 04:52] MED LIST changes: +Sod Ferric Gluc Complx/Sucrose 125 MG in NS 100 ML IV SCH
[2024-08-28 16:48] VITALS: BP 116/55
== END 2024-08-28 17:50 | disposition home or self-care (01) ==
LOC: ATC 04:52
DX: D50.9 Iron deficiency anemia, unspecified (principal); E78.5 Hyperlipidemia, unspecified; I11.0 Hypertensive heart disease with heart failure; I50.32 Chronic diastolic (congestive) heart failure
CPT/HCPCS: 96365; J2916

== ENCOUNTER → 2024-08-29 | Outpatient (CLI) | payer MEDICARE, OTHER ==
[~2024-08-29] MED LIST changes: -Sod Ferric Gluc Complx/Sucrose 125 MG in NS 100 ML IV SCH
== END ==
LOC: LAB SHORT 15:00 → LAB 15:00
DX: R35.0 Frequency of micturition (principal)
CPT/HCPCS: 87086

== ENCOUNTER 2024-09-03 05:02 | Day surgery (SDC) | payer MEDICARE, OTHER ==
[2024-09-03] MEDS ORDERED: Sod Ferric Gluc Complx/Sucrose 125 MG in NS 100 ML IV SCH (07:15)
[2024-09-03 10:21] VITALS: BP 154/75
== END 2024-09-03 11:30 | disposition home or self-care (01) ==
LOC: ATC 05:02
DX: D50.9 Iron deficiency anemia, unspecified (principal); I11.0 Hypertensive heart disease with heart failure; I50.32 Chronic diastolic (congestive) heart failure; E78.5 Hyperlipidemia, unspecified; K21.9 Gastro-esophageal reflux disease without esophagitis; F32.9 Major depressive disorder, single episode, unspecified; Z79.82 Long term (current) use of aspirin; Z79.899 Other long term (current) drug therapy; Z90.49 Acquired absence of other specified parts of digestive tract
CPT/HCPCS: 96365; J2916

== ENCOUNTER 2024-09-12 03:26 | Day surgery (SDC) | payer MEDICARE, OTHER ==
[2024-09-12] MEDS ORDERED: Sod Ferric Gluc Complx/Sucrose 125 MG in NS 100 ML IV SCH (06:00)
[2024-09-12 10:21] VITALS: BP 134/72
== END 2024-09-12 11:32 | disposition home or self-care (01) ==
LOC: ATC 03:26
DX: D50.9 Iron deficiency anemia, unspecified (principal); I10 Essential (primary) hypertension; K21.9 Gastro-esophageal reflux disease without esophagitis; F32.9 Major depressive disorder, single episode, unspecified; Z79.82 Long term (current) use of aspirin; Z79.899 Other long term (current) drug therapy
CPT/HCPCS: 96365; J2916